=== PATIENT | female | born 1985 | race Caucasian/White ===

== ENCOUNTER → 2016-11-17 | Outpatient (REF) | LOC: WSOH 15:18 | DX: Z02.89 Encounter for other administrative examinations (principal) ==

== ENCOUNTER 2021-04-23 03:03 | Inpatient (IN) | payer OTHER ==
[~2021-04-23] VITALS: Ht 157.5 cm; Wt 78.2 kg
[2021-04-23] VITALS (51 sets, daily range): BP systolic 90–151; BP diastolic 43–93; PULSE 81–124; TEMP 98–98.5
--- NOTE | 2021-04-23 03:15 | NUR ---
G1 at 34 weeks and 6 days arrives to unit with complaint of leakage of fluid. Pt reports waking up around 0230 and her bed was soaked with clear fluid. Pt has started feeling contractions since then but are not regular. Pt reports good movement. Denies headaches, changes in vision, or RUQ pain. Pt oriented to room, call light within reach, bed in low and locked position. Clean gown on. US and toco explained and applied. Vital signs obtained. Admission assessment started. Plan of care reviewed. SVE /-, no membranes felt on exam. Amnitrace inconclusive but much fluid out after cervical exam and blood tinged spot of chux pad. ROM plus obtained at this time.
--- NOTE | 2021-04-23 04:10 | NUR ---
Category 1 FHR tracing obtained. Monitors off at this time, pt can ambulate around room.
--- NOTE | 2021-04-23 05:10 | NUR ---
18G IV started in right hand at this time. Admission labs obtained off IV start. Lactated Ringers infusing to gravity. First dose of Pen G infusing. Consents reviewed and signed with patient and spouse. All questions answered.
[2021-04-23 05:42] LABS: BASO # 0.1 K/mm3 (0.0-0.2); BASO % 0.5 % (0.0-2.0); EOS # 0.1 K/mm3 (0.0-0.7); GRAN # 9.1 K/mm3 (1.4-6.5); GRAN % 69.3 % (42.2-75.2); HEMOGLOBIN 11.9 g/dl (12.5-16.0); LYMPH # 2.9 K/mm3 (1.2-3.4); LYMPH % 21.8 % (20.0-51.0); MEAN CELL VOLUME 89 fl (80.0-100.0); MEAN CORPUSCULAR HEMOGLOBIN 30 pg (27.0-31.0); MEAN CORPUSCULAR HGB CONC 34 g/dl (33.0-37.0); MEAN PLATELET VOLUME 9.3 fl (7.4-10.4); MONO # 0.9 K/mm3 (0.1-0.6); MONO % 6.9 % (1.7-9.3); PLATELET COUNT 282 K/mm3 (130-400); RED BLOOD COUNT 3.97 M/mm3 (4.10-5.30); REDCELL DISTRIBUTION WIDTH-CV 12.9 % (11.5-14.5)
[2021-04-23] MEDS ORDERED: PRENATAL TABLET PO (05:44)
[2021-04-23] MEDS ORDERED: ASPIRIN E.C. 8181 MG PO (05:44)
[2021-04-23 05:45] LABS: HEMATOCRIT 35.2 % (37.0-47.0)
--- NOTE | 2021-04-23 09:27 | NUR ---
0925-Dr. Plummer on unit. Reviews FHR monitor. In to see patient. Patient slowly to bed breathing through contractions. SVE by . Patient desires epidural. Notified EDUARDO Montes. Patient remains in bed WL.
--- NOTE | 2021-04-23 09:54 | NUR ---
0954-Patient back to bathroom and up to bedside for epidural placement. Jyoti,SENIOR ENERGY MARKET COORDINATOR to room. 1000-SS adminisitered by SARA Harley. Patient tolerated well. See anesthesia records.
--- NOTE | 2021-04-23 12:00 | NUR ---
Updated who is on unit of SVE /+1. Straight cath done per protocol. 800ml clear yellow urine. Patient to RL with LLS.
--- NOTE | 2021-04-23 12:57 | NUR ---
1257-Updated Dr. Maharaj with pushing efforts and reviewed late decesl with FHR down to 70bpm after pushing effots for the last 3 contractions. Pit has been at 4mu for 15 min. MD gives order to cut down pit to 2 mu and begin pushing with every other contraction.
--- NOTE | 2021-04-23 14:00 | NUR ---
1400-Dr. Cramer called unit for updated. Reviwed strip and FHR with . Orders to increase pit to 4 mu to get contractions closer together. 1405-Maternal BP 94/55, FHR with late decels. 10MG IV ephedrine given,see emar.
--- NOTE | 2021-04-23 15:05 | NUR ---
1505-Dr. Maharaj gives order to place patient in LL with RLS and labor down for 15-20 min. Repostioned. 1515-Maternal BP 90/54, 10mg IV ephedrine given, see EMAR.
--- NOTE | 2021-04-23 15:50 | NUR ---
1550-Dr. Maharaj to patient room to evaluate pushing. Pushes with contraction with patient. head with little movement. MD discusses options for delivery with patient. 1555-Patient plans for c/s. RN gets patient ready for OR. 1606-Patient off Monitors and to OR.
--- NOTE | 2021-04-23 17:20 | NUR ---
1720-Patient to PACU Via bed. A&O x4. LR infusing, Oliveira to DD, clear pink urine to DD, Abdomen with binder, Fundal massage firm. Dressing to abdominal incision with kimmie size drainage marked, Lochia WNL. Recieved report from EDUARDO Montes. Remained with patient per PACU protocol.
[2021-04-23 18:27] LABS: HEMOGLOBIN 11.9 g/dl (12.5-16.0)
[2021-04-23 18:32] LABS: HEMATOCRIT 34.5 % (37.0-47.0)
[2021-04-23 18:45] LABS: ALBUMIN 2.4 gm/dL (3.5-5.0); BILIRUBIN,TOTAL 0.4 mg/dL (0.2-1.2); CALCIUM 8.1 mg/dL (8.4-10.2); CREATININE, serum 0.59 mg/dL (0.57-1.11); POTASSIUM 3.3 mmol/L (3.5-4.5); TOTAL PROTEIN 5.9 gm/dL (6.2-8.1)
--- NOTE | 2021-04-23 20:21 | NUR ---
Dr. Maharaj on unit, in to push with patient. Instructs RN to continue pushing at this time.
[2021-04-24 00:30] VITALS: BP 101/52; PULSE 91; TEMP 98.3
[2021-04-24 04:30] VITALS: BP 98/52; PULSE 82; TEMP 97.5
[2021-04-24 07:52] VITALS: BP 105/58; PULSE 82; TEMP 98.2
[2021-04-24 08:53] LABS: HEMATOCRIT 29.9 % (37.0-47.0); HEMOGLOBIN 10.1 g/dl (12.5-16.0); MEAN CELL VOLUME 90 fl (80.0-100.0); MEAN CORPUSCULAR HEMOGLOBIN 31 pg (27.0-31.0); MEAN CORPUSCULAR HGB CONC 34 g/dl (33.0-37.0); MEAN PLATELET VOLUME 9.2 fl (7.4-10.4); PLATELET COUNT 249 K/mm3 (130-400); RED BLOOD COUNT 3.31 M/mm3 (4.10-5.30); REDCELL DISTRIBUTION WIDTH-CV 13.3 % (11.5-14.5)
--- NOTE | 2021-04-24 10:30 | NUR ---
1030-Patient transfers to wheelchair from bed. Tee discontinued prior. Lochia WNl, Mili care provided. Patient "very sore" and slow to move. Remains in wheel chair and in to nursery to see .
--- NOTE | 2021-04-24 11:30 | NUR ---
1130-Patient transfers up from wheelchair and ambulates to toilet. Mili care provided. Ambulates with steady gait to recliner.
[2021-04-24 11:42] VITALS: BP 92/50; PULSE 91; TEMP 98.2
[2021-04-24 16:46] VITALS: BP 99/52; PULSE 100; TEMP 98
[2021-04-24 20:00] VITALS: BP 99/52; PULSE 82; TEMP 98.4
--- NOTE | 2021-04-24 21:30 | NUR ---
Pt reports pain continues. Order obtained to give 2 percocets @ 2200.
[2021-04-25 08:45] VITALS: BP 92/64; PULSE 84; TEMP 97.5
--- NOTE | 2021-04-25 12:58 | NUR ---
Initial visit attempt; Family resting, Airline Reservation Agent left card of congratulations for family for the of their son and information regarding the availability of Spiritual Care at our hospital.
[2021-04-25 16:30] VITALS: BP 115/60; PULSE 94; TEMP 97.6
[2021-04-25 23:00] VITALS: BP 108/60; PULSE 72; TEMP 98
[2021-04-26 08:15] VITALS: BP 107/50; PULSE 95; TEMP 98
[2021-04-26] MEDS ORDERED: IBU800 M1 PO (09:11)
[2021-04-26] MEDS ORDERED: PERCOCET 325 MG1 TA2 PO (09:11)
--- NOTE | 2021-04-26 16:00 | NUR ---
DISCHARGE TEACHING COMPLETED. EDUCATED ON FOLLOW UP APPOINTMENTS AND PRESCRIPTIONS. DISCUSED BOARDER STATUS. QUESTIONS INVITED AND ANSWERED.
[2021-04-26 16:21] VITALS: BP 101/62; PULSE 90; TEMP 98.4
== END 2021-04-26 18:40 | disposition home or self-care (01) | DRG 788 ==
LOC: LDRO 03:03 → LDR 03:33 → LDRO 03:59 → LDR 04:00 → OB 04:00
PROVIDERS: Student in an Organized Health Care Education/Training Program; ADMIT Obstetrics & Gynecology
PROC: 10D00Z1 Extraction of Products of Conception, Low, Open Approach (ICD-10-PCS; principal; 2021-04-23)
DX: O60.14X0 Preterm labor third trimester with preterm delivery third trimester, not applicable or unspecified (principal); O64.0XX0 Obstructed labor due to incomplete rotation of fetal head, not applicable or unspecified; O75.89 Other specified complications of labor and delivery; O90.81 Anemia of the puerperium; D64.9 Anemia, unspecified; Z3A.34 34 weeks gestation of pregnancy; Z37.0 Single live birth; O09.813 Supervision of pregnancy resulting from assisted reproductive technology, third trimester
CPT/HCPCS: J0171; J0690; J0702; J1885; J2175; J2370; J2400; J2405; J2540; J2590; J2795; J7120

== ENCOUNTER 2024-03-26 21:34 | Outpatient (CLI) | payer BC ==
[~2024-03-26] VITALS: Ht 157.5 cm; Wt 77.3 kg
[~2024-03-26 21:34] MED LIST: ASPIRIN E.C. 8181 MG PO; IBU800 M1 PO; PERCOCET 325 MG1 TA2 PO; PRENATAL TABLET PO
--- NOTE | 2024-03-26 21:42 | NUR ---
2141-ARRIVED AMBULATORY TO LR4 WITH COMPLAINT OF CONTRACTIONS. STATES SHE IS NOT SURE HOW TO TIME THEM BUT THEY SEEM TO BE GETTING STRONGER. DENIES ROM OR VAGINAL BLEEDING. REPORTS ACTIVE MOVEMENT. STATES SHE WAS CHECKED AT OFFICE YESTERDAY AND WAS 2 CM. 2157-ATTEMPT AT SVE. DIFFICULT DUE TO POSTERIOR CERVIX. 2208-SVE PER Vane GONSALES RN 1-2 CM/60/-1. PT TOLERATED PROCEDURE WELL.
[2024-03-26 22:00] VITALS: BP 101/58; PULSE 89; TEMP 98.5
[2024-03-26] MEDS ORDERED: LR 1,000 ML IV PRN (22:00)
--- NOTE | 2024-03-26 23:15 | NUR ---
SVE REVEALS NO CHANGE. PT WITH SOME UTERINE IRRITABILITY BETWEEN CONTRACTIONS. WILL CALL MD WITH REPORT. 6270-REVIEWED ALL DC INSTRUCTIONS WITH PT INCLUDING WHEN TO CALL MD OFFICE OR RETURN TO L&D. PT VERB UNDERSTANDING. DISCHARGED HOME AMBULATORY WITH SPOUSE WITH COPY OF INSTRUCTIONS.
[2024-03-26 23:30] VITALS: BP 107/56; PULSE 76
[2024-04-01] MEDS ORDERED: Azithromycin 500 MG in NS 250 ML IV ONE (22:45)
[2024-04-01] MEDS ORDERED: LR 1,000 ML IV SCH (22:45)
== END 2024-03-26 23:55 | disposition home or self-care (01) ==
LOC: LDRO 21:34
DX: O62.9 Abnormality of forces of labor, unspecified (principal); Z3A.36 36 weeks gestation of pregnancy